=== PATIENT | male | born 1960 | race Two or more races ===

== ENCOUNTER 2023-09-28 08:06 | Emergency (ER) | payer OTHER ==
[~2023-09-28] VITALS: Ht 165.1 cm; Wt 86.2 kg
[2023-09-28] MEDS ORDERED: METHYLPREDNISOLONE SOD SUCC 125 MG VIAL IV STA (08:45)
[2023-09-28] MEDS ORDERED: DIPHENHYDRAMINE HCL 50 MG/ML VIAL 1ML IV STA (08:45)
[2023-09-28] MEDS ORDERED: cloNIDine HCL 0.2 MG TABLET PO STA (08:46)
== END 2023-09-28 13:39 | disposition home or self-care (01) ==
LOC: ER 08:07
DX: I10 Essential (primary) hypertension (principal)